=== PATIENT | male | born 1970 | race Caucasian/White ===

== ENCOUNTER 2019-09-20 16:05 | Emergency (ER) | payer SELFPAY ==
[2019-09-20] MEDS ORDERED: Bicillin LA 1.2 MILLION UNITS/2 ML SYRINGE ONE (16:52)
[2019-09-20] MEDS ORDERED: Dexamethasone 4 MG TAB ONE (16:54)
== END 2019-09-20 17:15 | disposition home or self-care (01) ==
LOC: BURERS 16:05
DX: J02.9 Acute pharyngitis, unspecified (principal)
CPT/HCPCS: 96372; J0561; J8540

== ENCOUNTER 2019-09-21 23:05 | Emergency (ER) | payer SELFPAY ==
[2019-09-21] MEDS ORDERED: methylPREDNISolone Sod Succ/PF 125 MG/2 ML VIAL ONE (23:25)
== END 2019-09-22 01:19 | disposition home or self-care (01) ==
LOC: BURERS 23:05
DX: J02.9 Acute pharyngitis, unspecified (principal); J06.9 Acute upper respiratory infection, unspecified; R00.0 Tachycardia, unspecified; Z79.84 Long term (current) use of oral hypoglycemic drugs
CPT/HCPCS: 87081; 87430; 93005; 96372; J2930; J7620